=== PATIENT | male | born 1960 | race Caucasian/White ===

== ENCOUNTER 2020-05-27 14:05 | Outpatient (RCR) | payer MEDICARE, OTHER, SELFPAY ==
--- NOTE | 2020-05-27 15:05 | PTOPEVAL ---
Thank you for referring Jean Paul Gore to [facility].? The patient is scheduled to be seen for therapy? ____x/week for ___ weeks. Please review, sign, date and return this plan of care BLAIR. I agree with and certify that the following plan of care is medically necessary. Referring Physician Date Admitting Provider: Attending Provider: PHYSICIAN NOT ON STAFF Referring Provider: *PT Outpatient Evaluation Start: 05/27/20 14:11 Freq: Status: Active Protocol: Document 05/27/20 14:14 Robyn (Rec: 05/27/20 15:04 TERENCE [email or web address]) Therapy Assessment Status Assessment Status Assessment Status Evaluation Evaluation Information Problem Diagnosis chronic bilateral low back pain with sciatica Onset 04/29/20 Additional Evaluation Detail oswestry = 58% Subjective Information patient reports he is having Query Text:As Reported By Patient/ pain in the back and the Family bilateral LE's. he reports he is having nerve pain down the legs. 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 he reports most of his pain is felt at night time. he reports he has to stretch and massage his hips and lower legs to help relieve his pain. he reports he also has increased pain with lifting, standing, and walking. 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 he reports his symptoms are mostly posterior and lateral on the bilateral LE's. Prior Level of Function Comments Additional Prior Level of Function patient reports he has been Comments dealing with this pain and progressively getting worse for the past 5 years since his back surgery. he reports he would like to sleep through the night, return to fishing, and particpate in community/ recreational activities. Pain Assessment Timing of Pain Assessment Timing of Pain Assessment Assessment Pain Scale Pain Scale Used Numeric (1 - 10) Self Report Pain Assessment Lower Back Reported Pain Level 7 Pain Radiation Left Leg,Right Leg Lowest Pain Intensity
--- NOTE | 2020-10-20 11:10 | PCPTNOTE ---
10/20/20 - patient had an ablasion surgery and it did not work. he reports he is seeking pain management now. as of this date, patient will be DC'd from skilled PT services and all progress towards goals will be taken from most recent evaluation/note. TERENCE
== END 2020-06-03 23:59 | disposition home or self-care (01) ==
LOC: CHSPT 14:05
DX: M54.42 Lumbago with sciatica, left side (principal); M54.41 Lumbago with sciatica, right side; G89.28 Other chronic postprocedural pain
CPT/HCPCS: 97014; 97110; 97162; G0283